=== PATIENT | female | born 1990 | race Caucasian/White ===

== ENCOUNTER → 2018-07-30 | Outpatient (CLI) | payer MEDICAID | LOC: LABWHC1 13:50 | PROVIDERS: ATTEND Obstetrics & Gynecology Obstetrics | DX: N83.209 Unspecified ovarian cyst, unspecified side (principal) | CPT/HCPCS: 36415 ==

== ENCOUNTER → 2018-09-13 | Outpatient (CLI) | payer MEDICAID ==
[2018-09-13 09:19] LABS: Basophils % (A) 0 %; Eosinophils # (A) 0.3 k/uL (0-0.7); Eosinophils % (A) 4 %; HCT 40.4 % (34.0-46.0); HGB 13.3 gm/dL (11.4-16.0); Lymphocytes # (A) 2.6 k/uL (1.0-4.8); Lymphocytes % (A) 29 %; MCH 28.5 pg (25.0-35.0); MCHC 32.8 g/dL (31.0-37.0); MCV 86.9 fL (80.0-100.0); Mean Platelet Volume 7.6; Monocytes # (A) 0.6 k/uL (0-1.0); Monocytes % (A) 7 %; Neutrophils # (A) 5.2 k/uL (1.3-7.7); Neutrophils % (A) 58 %; Platelet Count 188 k/uL (150-450); RBC 4.65 m/uL (3.80-5.40); RDW 13.1 % (11.5-15.5); WBC 8.9 k/uL (3.8-10.6)
== END | disposition home or self-care (01) ==
LOC: LABPAT 08:25
PROVIDERS: ATTEND Obstetrics & Gynecology Obstetrics
DX: Z01.812 Encounter for preprocedural laboratory examination (principal); N94.9 Unspecified condition associated with female genital organs and menstrual cycle; N92.6 Irregular menstruation, unspecified
CPT/HCPCS: 36415; 85025

== ENCOUNTER 2018-09-17 08:31 | Day surgery (SDC) | payer MEDICAID ==
[2018-09-12 15:28] VITALS: BMI 32.8
--- NOTE | 2018-09-16 14:12 | HP ---
HISTORY AND PHYSICAL DATE OF SURGERY: 09/17/2018 HISTORY OF PRESENT ILLNESS: This is a very pleasant 28-year-old female, 1, para 0-0-1-0 that presented for her preoperative visit for ovarian mass. Patient had a noted 4 cm solid-appearing ovarian mass, underwent ova 1 testing, which was low risk. Patient is desirous of in the near future. PAST MEDICAL HISTORY: Unremarkable. PAST SURGICAL HISTORY: She has had her adenoids and tonsils removed along with her wisdom teeth. MEDICATIONS: She is on aspirin, folic acid, and a vitamin. ALLERGIES: PREDNISONE. FAMILY MEDICAL HISTORY: Noncontributory. ICD 9 CODER HISTORY: She is a 1, para 0-0-1-0 with history of a missed AB in May of 2018. The patient states her menstrual cycles are regular with a moderate flow lasting 4-5 days. SOCIAL HISTORY: She is a current smoker of quarter pack a day. She is employed as a nurse. She denies illicit drug use. REVIEW OF SYSTEMS: She denies body aches, night sweats or fevers. She denies nausea, vomiting, diarrhea, constipation. She denies urgency, frequency, dysuria, incontinence, or changes in vaginal discharge. PHYSICAL EXAM: Vital Signs are noted to be normal. In general, this is a well-nourished, well- developed, alert female in no acute distress. Her breathing is noted to be nonlabored. Her heart has a regular rate and rhythm. Her genitourinary exam is normal in nature. External vaginal anatomy is noted to be normal without lesions. Her cervix is normal, healthy, no lesions are present. Her uterus is nontender to palpation. No masses are noted. It is normal in size and mobility is normal. There are no adnexal masses are present. Her mental status is noted to be grossly oriented to person, place, and time. Her mood is normal with a normal affect. ASSESSMENT: Ovarian mass with negative ova 1 testing. PLAN: We have discussed with the patient the options of operative laparoscopy with right salpingo-oophorectomy in fertility sparing of her left ovary. Patient states understanding and the need for surgery given the size of the mass on the ovary despite negative genetic testing. Patient is counseled on the surgery itself. All questions are answered. Risks are reviewed including, but not limited to infection, bleeding, damage to bladder, bowel, ureteric or other pelvic structures. The need for possible exploratory laparotomy given size of the ovarian mass or complexity of the surgery were discussed. The patient states understanding of this as well. The patient wishes to proceed with this procedure. MMODL / IJN: [id number] /
[~2018-09-17 08:31] MED LIST: HYDROmorphone 0.5 MG/0.5 ML SYRINGE IVP PRN; LACTATED RINGERS 1,000 ML IV SCH; MIDAZOLAM 2 MG/2 ML VIAL IV PRN; Pre Op ABX Message 1 EACH MISC MISCELLANE ONE; SCOPOLAMINE 1.5MG/72HR PATCH TRANSDERM ONE
[2018-09-17] MEDS: ONDANSETRON 4 MG/2 ML VIAL IVP ONE ×2 (08:55→11:11)
[2018-09-17] MEDS ORDERED: HYDROmorphone (PF) 1 MG/ML ONE (09:44)
[2018-09-17] MEDS ORDERED: NEOSTIGMINE 1 MG/ML 10 ML VIAL ONE (09:44)
[2018-09-17] MEDS ORDERED: KETOROLAC 30 MG/ML 1 ML VIAL ONE (09:44)
[2018-09-17] MEDS ORDERED: ROCURONIUM BROMIDE 10 MG/ML 10 ML VIAL IV ONE (09:44)
[2018-09-17] MEDS ORDERED: PROPOFOL 10 MG/ML 20 ML VIAL IV ONE (09:44)
[2018-09-17] MEDS ORDERED: fentaNYL (PF) 50 MCG/ML 2 ML AMP ONE (09:44)
[2018-09-17] MEDS ORDERED: GLYCOPYRROLATE 0.2 MG/ML 2 ML VIAL ONE (09:44)
[2018-09-17] MEDS ORDERED: LIDOCAINE 1% INJ 10MG/ML (20 ML MDV) ONE (09:44)
[2018-09-17] MEDS ORDERED: MIDAZOLAM 2 MG/2 ML VIAL ONE (09:44)
[2018-09-17] MEDS ORDERED: BUPIVACAINE (PF) 0.25% 30 ML VIAL SQ ONE ×2 (10:05)
[2018-09-17 11:09] VITALS: TEMP 97.4
[2018-09-17 11:19] VITALS: RESP 16
--- NOTE | 2018-09-17 11:20 | P.OP ---
Date of Procedure: 09/17/18 Preoperative Diagnosis: Right ovarian mass, 4 cm Postoperative Diagnosis: Same plus suspected endometriosis Procedure(s) Performed: Operative laparoscopy with right salpingo-oophorectomy Anesthesia: GETA Surgeon: Georgina Ledezma Estimated Blood Loss (ml): 10 Urine output (ml): 100 Pathology: other (Right ovary and fallopian tube) Condition: stable Disposition: PACU Indications for Procedure: Right ovarian solid appearing mass, negative ova-1 testing Operative Findings: Enlarged right ovary with hemorrhagic features, normal left ovary normal left fallopian tube uterus normal in size freely mobile. There was a filmy adhesion noted in the right upper abdomen which makes my suspicion for endometriosis greater. Description of Procedure: Patient was seen in the preoperative area and informed consent was obtained. Patient was counseled on the risks of surgery Clooney but not limited to infection, bleeding, damage to bladder, bowel, ureteric or other pelvic structures. Patient stated understanding and wished to proceed. Patient was taken to the operating suite where general anesthesia was obtained without difficulty. She was then prepped and draped in normal sterile fashion in the dorsal lithotomy position. A red rubber catheter was then placed into the bladder as a means to drain the bladder during the procedure. A weighted speculum was placed in the posterior vaginal vault the anterior lip of the cervix was visualized and grasped with single-tooth tenaculum. An acorn uterine manipulator was advanced into the cervix as a means to miniplate uterus throughout the procedure. Attention was then turned the patient's abdomen where in the umbilical fold a 5 mm skin incision is made. Through this incision the Veress needle is placed. Once very stenosed deemed to be in the appropriate position with a drop of CO2 pressure CO2 insufflation was allowed to occur. The incision was elongated and neck 10 mm trocar and sleeve with a practice managers scope in placed was placed through the skin incision and toward the pneumoperitoneum. The above-noted findings were visualized. At this point a additional port site was placed in the right lateral sidewall this is placed under direct visual ization and was a 5 mm port. An additional port site was placed in the left lateral sidewall this is a 12 mm ports and placed under direct visualization. The right ovary was noted to be loosely attached to the pelvic sidewall these were all filmy in nature the bowel was far from the operating field. Once the ovary was visualized the interval pelvic ligament was grasped with the LigaSure coagulated and transected hemostasis was appreciated. This continued behind the ovary and through the uterine ovarian ligament. Hemostasis was appreciated throughout. The ovary was then placed in an Endo Catch bag and delivered through the left lateral port site. The pelvis then copiously irrigated and hemostasis was appreciated. FloSeal was placed on the left pelvic sidewall where the pelvic mass was noted. At this time all ports removed without difficulty. The 12 mm operative port fascial incision was closed with a UR 6-0 Vicryl. The skin incisions were closed with 4-0 Vicryl in a subcuticular fashion. The red rubber catheter, and acorn uterine manipulator were removed without difficulty and the single tooth tenaculum was removed, and hemostasis was appreciated. ALL COUNTS CORRECT X 2 Patient tolerated procedure well was taken to the recovery room awake in stable condition.
[2018-09-17 12:30] VITALS: BP 119/80; PULSE 74
== END 2018-09-17 13:04 | disposition home or self-care (01) ==
LOC: OR 08:31
PROVIDERS: ATTEND Obstetrics & Gynecology Obstetrics
DX: N83.201 Unspecified ovarian cyst, right side (principal); N83.8 Other noninflammatory disorders of ovary, fallopian tube and broad ligament; G43.909 Migraine, unspecified, not intractable, without status migrainosus; K21.9 Gastro-esophageal reflux disease without esophagitis; Z87.891 Personal history of nicotine dependence; Z79.82 Long term (current) use of aspirin; Z79.899 Other long term (current) drug therapy; Z88.8 Allergy status to other drugs, medicaments and biological substances; Z91.09 Other allergy status, other than to drugs and biological substances
CPT/HCPCS: 58661; 81025; 88305; C1762; J2250; J2710; J2405; J2001; J3010; J1885; J1170 ×2; J2704

== ENCOUNTER 2020-01-19 06:00 | Inpatient (IN) | payer MEDICAID ==
[2020-01-19] MEDS ORDERED: LIDOCAINE 0.5% (PF) 5 MG/ML (50 ML SDV) SQ PRN (06:18)
[2020-01-19] MEDS ORDERED: CARBOPROST TROMETHAMINE 250 MCG/ML 1 ML AMP IM PRN (06:18)
[2020-01-19] MEDS ORDERED: METHYLERGONOVINE 0.2 MG/ML 1 ML AMP IM PRN (06:18)
[2020-01-19] MEDS ORDERED: TERBUTALINE 1 MG/ML VIAL SQ PRN (06:18)
[2020-01-19] MEDS ORDERED: OXYTOCIN 10 UNIT/ML 1 ML VIAL IM PRN (06:18)
[2020-01-19] MEDS ORDERED: OXYTOCIN 30 UNITS/500 ML NS 30 UNIT in SALINE 1 500ML.BAG IV SCH (06:30)
[2020-01-19] MEDS: LACTATED RINGERS 1,000 ML IV SCH ×3 (06:33→18:43)
[2020-01-19 07:48] LABS: Basophils % (A) 0 %; Eosinophils # (A) 0.2 k/uL (0-0.7); Eosinophils % (A) 1 %; HCT 35.6 % (34.0-46.0); HGB 11.7 gm/dL (11.4-16.0); Lymphocytes # (A) 2.3 k/uL (1.0-4.8); Lymphocytes % (A) 18 %; MCH 27.4 pg (25.0-35.0); MCHC 32.9 g/dL (31.0-37.0); MCV 83.3 fL (80.0-100.0); Mean Platelet Volume 9.1; Monocytes # (A) 0.7 k/uL (0-1.0); Monocytes % (A) 6 %; Neutrophils # (A) 9.1 k/uL (1.3-7.7); Neutrophils % (A) 73 %; Platelet Count 193 k/uL (150-450); RBC 4.27 m/uL (3.80-5.40); RDW 13.7 % (11.5-15.5); WBC 12.4 k/uL (3.8-10.6)
--- NOTE | 2020-01-19 09:31 | P.HPOB ---
History of Present Illness H&P Date: 01/19/20 Chief Complaint: IUP at 39 and 3/sevenths weeks This is a 29-year-old at 39-3/7 weeks with an estimated due date of 01/22. Patient presents for induction of labor. Patient has been receiving routine clinical care which has been essentially uncomplicated. Patient does have a history of MTHFr. This morning patient notes good movement, denies loss of fluid or vaginal bleeding and she does note an occasional contraction. On bloodwork patient is a blood type of B+, rubella immune, just surface antigen negative, RPR nonreactive, GBS negative. Review of Systems Constitutional: Denies chills, Denies fatigue, Denies fever Ears, nose, mouth and throat: Denies headache Cardiovascular: Reports leg edema Respiratory: Denies dyspnea Gastrointestinal: Denies constipation, Denies diarrhea, Denies nausea, Denies vomiting Genitourinary: Reports Past Medical History Past Medical History: No Reported History Additional Past Medical History / Comment(s): migraines, occ palpitations, occ heartburn, History of Any Multi-Drug Resistant Organisms: None Reported Past Surgical History: Adenoidectomy, Tonsillectomy Additional Past Surgical History / Comment(s): oral surgery, right ovarian in 2019 Past Anesthesia/Blood Transfusion Reactions: No Reported Reaction Past Psychological History: No Psychological Hx Reported Smoking Status: Never smoker Past Alcohol Use History: Occasional Additional Past Alcohol Use History / Comment(s): quit smoking over 12 yrs ago, smoked for < 1 yr Past Drug Use History: None Reported - Past Family History Father Family Medical History: Cancer Additional Family Medical History / Comment(s): oral Medications and Allergies Home Medications Medication Instructions Recorded Confirmed Type Aspirin [Adult Low Dose Aspirin EC] 81 mg PO DAILY 09/12/18 01/19/20 History Folic Acid (Dose Unknown) 1 tab PO DAILY 09/12/18 01/19/20 History Pnv No.95/Ferrous Fum/Folic AC 1 each PO DAILY 09/12/18 01/19/20 History [ Multivitamin Tablet] Omeprazole [PriLOSEC] 20 mg PO AC-BID 01/19/20 01/19/20 History Allergies Allergy/AdvReac Type Severity Reaction Status Date / Time prednisone Allergy Severe made hives Verified 01/19/20 06:17 worse-burning and itching airbrush makeup Allergy Anaphylaxis Uncoded 01/19/20 06:17 preservative in injections Allergy Nausea & Uncoded 01/19/20 06:17 Vomiting & Diarrhea Exam Osteopathic Statement: *. No significant issues noted on an osteopathic structural exam other than those noted in the History and Physical/Consult. 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 Results Result Diagrams: 01/19/20 06:30 Abnormal Lab Results - Last 24 Hours (Table) 01/19/20 Range/Units 06:30 WBC 12.4 H (3.8-10.6) k/uL Neutrophils # 9.1 H (1.3-7.7) k/uL Assessment and Plan (1) Term Current Visit: Yes Status: Acute Code(s): Z34.90 - ENCNTR FOR SUPRVSN OF NORMAL , UNSP, UNSP TRIMESTER SNOMED Code(s): 34584942 Plan: Patient is admitted to labor and delivery for planned induction of labor. Pitocin is started per hospital protocol. Patient is counseled on options for analgesia during labor including Stadol and epidural. Patient will decide when she becomes uncomfortable.
[2020-01-19] MEDS ORDERED: ROPIVACAINE 5MG/ML 20ML VIAL ONE (18:38)
[2020-01-19] MEDS ORDERED: fentaNYL (PF) 50 MCG/ML 5 ML AMP ONE (18:38)
[2020-01-19] MEDS ORDERED: SODIUM CHLORIDE 0.9% 100 ML BAG ONE (18:38)
[2020-01-19] MEDS ORDERED: CITRIC ACID-SODIUM CITRATE 15 ML CUP PO ONE (20:54)
[2020-01-19] MEDS ORDERED: fentaNYL (PF) 50 MCG/ML 2 ML AMP ONE (21:11)
[2020-01-19] MEDS ORDERED: OXYTOCIN 10 UNIT/ML 1 ML VIAL ONE (21:11)
[2020-01-19] MEDS ORDERED: LIDOCAINE 2% (PF) 20 MG/ML 2 ML VIAL ONE (21:11)
[2020-01-19] MEDS ORDERED: MORPHINE SULFATE (PF) 0.3 MG/0.3 ML SYR ONE (21:11)
[2020-01-19] MEDS ORDERED: METOCLOPRAMIDE 5 MG/ML 2 ML VIAL IVP PRN (22:02)
[2020-01-19] MEDS ORDERED: diphenhydrAMINE 25 MG CAP PO PRN (22:02)
[2020-01-19] MEDS ORDERED: HYDROcodone/APAP 5-325MG 1 EACH TAB PO PRN (22:02)
[2020-01-19] MEDS ORDERED: diphenhydrAMINE 50 MG CAP PO PRN (22:02)
[2020-01-19] MEDS ORDERED: ONDANSETRON 4 MG/2 ML VIAL IVP PRN (22:02)
[2020-01-19] MEDS ORDERED: NALOXONE 0.4 MG/ML 1 ML VIAL IV PRN (22:02)
[2020-01-19] MEDS ORDERED: diphenhydrAMINE 50 MG/ML 1 ML VIAL IVP PRN ×2 (22:02)
[2020-01-19] MEDS ORDERED: ACETAMINOPHEN IV (For NPO) 1,000 MG in EMPTY BAG 1 BAG IVPB ONE (22:02)
[2020-01-19] MEDS ORDERED: ZOLPIDEM 5 MG TAB PO PRN (22:02)
[2020-01-19] MEDS ORDERED: SIMETHICONE 80 MG CHEWABLE PO PRN (22:02)
[2020-01-19] MEDS ORDERED: IBUPROFEN IV 800 MG in SODIUM CHLORIDE 0.9% 250 ML IV ONE (22:04)
--- NOTE | 2020-01-19 22:09 | P.OP ---
Date of Procedure: 01/19/20 Preoperative Diagnosis: IUP at 39 and 3/sevenths weeks, arrest of descent and dilation Postoperative Diagnosis: Same Procedure(s) Performed: Primary low transverse section Anesthesia: epidural Surgeon: Georgina Ledezma Lens Silverer #1: Brigitte Bernabe Estimated Blood Loss (ml): 464 IV fluids (ml): 1,800 Urine output (ml): 200 Pathology: none sent Condition: stable Disposition: observation Indications for Procedure: This 29-year-old G2 2 para 0010 at 39-3/7 weeks presented this morning for elective induction of labor. Patient had been receiving routine care which has been essentially uncomplicated. Patient does have a history of NTD HFR. Patient was admitted Pitocin induction of labor was begun. Patient made slow progress throughout the day eventually requesting an epidural when she was 78 cm for a couple hours. After another few hours had passed patient had a made no further change, and arrest of descent and dilation was diagnosed. Patient was counseled on primary secondary to arrest of first stage of labor. Patient agreed and was taken back to the operating suite. Operative Findings: Normal uterus and ovaries were appreciated right fallopian tube was absent from prior ectopic . Viable male delivered at 2133, weight of 7 lbs. 11 oz. and Apgars of 9 and 9 at one and 5 minutes respectively. Description of Procedure: The patient was prepped and draped in the usual fashion after epidural anesthesia was found to be adequate. A Pfannenstiel incision was made and extended of the abdominal cavity without difficulty. The bladder peritoneum was elevated and incised and reflected distally. A 2 cm incision was made in the transverse plane of the lower uterine segment to enter the uterus at which time clear fluid was noted. The incision was extended laterally. The head was encountered within the field and delivered up and through the incision where the nose and mouth were thoroughly suctioned. Remainder of the was delivered onto the surgical field where the cord was doubly clamped, cut, and the was passed for resuscitative measures with weight and Apgars as noted above. The placenta was delivered manually, intact, and was grossly normal with a grossly normal three-vessel cord. The uterus was exteriorized and the interior cavity of the uterus swept of any remaining placental and membranous fragments with a laparotomy sponge. The margins of the incision were grasped with allis clamps and the incision closed in 2 layers. First layer was a running locking layer of 0 Vicryl from margin to margin followed by a second layer of imbricating 0 chromic catgut from margin to margin. Any small points of bleeding were then made hemostatic with the Bovie. Once hemostasis was achieved, the posterior cul-de-sac was suctioned with a guard and the uterine and ovarian findings are as noted above. The uterus was replaced within the abdominal cavity and the gutters swept of any remaining blood fluid or clot. The incision was again reexamined and hemostasis was noted to be excellent. Any small point of bleeding were made hemostatic with the Bovie. Once hemostasis was achieved the parietal peritoneum was loosely reapproximated. The layer of muscles were examined and made hemostatic with the Bovie. Attention was then turned to the fascia which was closed with 2 running stitches of 0 Vicryl proceeding from the lateral margins to the midpoint. The subcutaneous tissues were irrigated, made hemostatic with the Bovie, and reapproximated with a running stitch of 30 Vicryl. The skin was reapproximated with 4-0 Vicryl. Estimated blood loss for the case was approximately 464 mL. All sponge instrument and needle counts are correct. There were no complications. The patient tolerated the procedure well and proceeded to the recovery room in stable condition. Both mother and are resting comfortably in recovery.
[2020-01-19] MEDS ORDERED: OXYTOCIN 20 UNITS/1000 ML NS 1,000 ML IV SCH (22:15)
[2020-01-19] MEDS ORDERED: LACTATED RINGERS 1,000 ML IV SCH (22:15)
[2020-01-20] MEDS: LACTATED RINGERS 1,000 ML IV SCH (05:46)
[2020-01-20 07:45] LABS: Basophils % (A) 0 %; Eosinophils # (A) 0.3 k/uL (0-0.7); Eosinophils % (A) 2 %; HCT 29.2 % (34.0-46.0); Lymphocytes # (A) 1.6 k/uL (1.0-4.8); Lymphocytes % (A) 12 %; MCH 27.8 pg (25.0-35.0); MCHC 33.6 g/dL (31.0-37.0); MCV 82.7 fL (80.0-100.0); Mean Platelet Volume 8.6; Monocytes # (A) 0.8 k/uL (0-1.0); Monocytes % (A) 6 %; Neutrophils # (A) 10.8 k/uL (1.3-7.7); Neutrophils % (A) 80 %; Platelet Count 133 k/uL (150-450); RBC 3.53 m/uL (3.80-5.40); RDW 13.6 % (11.5-15.5); WBC 13.6 k/uL (3.8-10.6)
[2020-01-20] MEDS: SENNOSIDES-DOCUSATE SODIUM 1 EACH TAB PO SCH ×2 (07:49→19:45)
[2020-01-20 07:59] LABS: HGB 9.8 gm/dL (11.4-16.0)
--- NOTE | 2020-01-20 08:14 | P.PN ---
Progress Note - Text Progress Note Date: 01/20/20 (700) S/p c/s with duramorph doing well. W/o complaint. VAS 0/10. No N/V/P. Afebrile. Spinal site intact without induration. NAD Reg Rate Good Chest Excursion Non Distended A: Sp C/s with duramorph through epidural P: Answered all questions.
[2020-01-20] MEDS: IBUPROFEN 600 MG TAB PO PRN ×2 (10:43→17:18)
--- NOTE | 2020-01-20 12:50 | P.PNOBGPC ---
Subjective - Subjective Principal diagnosis: POD 1 LTCS srrest of descent and dilation Interval history: Patient did well overnight. She is ambulating and voiding without difficulty. She is tolerating a regular diet without nausea or vomiting. States her lochia is minimal. She is breast-feeding with some difficulty, she states her pain is well-controlled. Patient reports: Reports appetite normal, Reports voiding normally, Reports pain well controlled, Reports ambulating normally [place]: doing well, nursing well Objective - Vital Signs Latest vital signs: Vital Signs Temp Pulse Resp BP Pulse Ox 01/20/20 07:45 97.9 F 79 16 132/78 99 01/20/20 04:00 98 F 77 16 132/73 98 01/20/20 00:07 98 F 83 16 127/76 97 01/19/20 23:37 68 16 126/67 97 01/19/20 23:07 81 16 130/62 100 01/19/20 22:52 95 16 151/85 100 01/19/20 22:37 93 16 126/66 98 01/19/20 22:22 100 16 135/61 97 01/19/20 22:07 97.3 F L 114 H 18 155/59 97 Intake and Output 01/19/20 01/20/20 01/20/20 22:59 06:59 14:59 Output Total 150 550 300 Balance -150 -550 -300 Output: Urine 150 550 300 Other: Voiding Method Indwelling Catheter Indwelling Catheter # Voids 1 - Exam Extremities: Present: edema Abdomen: Present: normal appearance, soft Incision: Present: normal, dry, intact Uterus: Present: normal, firm - Labs Labs: Abnormal Lab Results - Last 24 Hours (Table) 01/20/20 Range/Units 07:34 WBC 13.6 H (3.8-10.6) k/uL RBC 3.53 L (3.80-5.40) m/uL Hgb 9.8 L D (11.4-16.0) gm/dL Hct 29.2 L (34.0-46.0) % Plt Count 133 L (150-450) k/uL Neutrophils # 10.8 H (1.3-7.7) k/uL Assessment and Plan (1) Term Current Visit: Yes Status: Acute Code(s): Z34.90 - ENCNTR FOR SUPRVSN OF NORMAL , UNSP, UNSP TRIMESTER SNOMED Code(s): 79748604 (2) S/P section Current Visit: Yes Status: Acute Code(s): Z98.891 - HISTORY OF UTERINE SCAR FROM PREVIOUS SURGERY SNOMED Code(s): 675102017 (3) Arrest of descent, delivered, current hospitalization Current Visit: Yes Status: Acute Code(s): O62.1 - SECONDARY UTERINE INERTIA SNOMED Code(s): 51862905 (4) Arrest of dilation, delivered, current hospitalization Current Visit: Yes Status: Acute Code(s): O62.1 - SECONDARY UTERINE INERTIA SNOMED Code(s): 75092396 Plan: Patient is doing well postoperatively. We will plan to continue routine postoperative care and anticipate discharge home tomorrow.
[2020-01-20] MEDS: ACETAMINOPHEN TAB 325 MG TAB PO PRN ×2 (14:34→19:45)
[2020-01-21] MEDS: SENNOSIDES-DOCUSATE SODIUM 1 EACH TAB PO SCH (07:50)
[2020-01-21] MEDS: IBUPROFEN 600 MG TAB PO PRN (07:53)
[2020-01-21 08:16] VITALS: BP 135/62; PULSE 74; RESP 17; TEMP 97.9
--- NOTE | 2020-01-21 08:41 | P.DS ---
Providers Date of admission: 01/19/20 06:00 Expected date of discharge: 01/21/20 Attending physician: Georgina Ledezma Primary care physician: Regina Perdomo - Discharge Diagnosis(es) (1) Term Current Visit: Yes Status: Acute (2) S/P section Current Visit: Yes Status: Acute (3) Arrest of descent, delivered, current hospitalization Current Visit: Yes Status: Acute (4) Arrest of dilation, delivered, current hospitalization Current Visit: Yes Status: Acute Hospital Course: this is a 29-year-old at 39-3/7 weeks that presented to labor and delivery on 01/18 for elective induction of labor. Patient has been receiving routine care which has been essentially uncomplicated. Patient does have a known history FM T HFR. Patient was admitted to labor and delivery and Pitocin induction of labor was begun. Patient progressed through labor progressing to 78 cm. After a few hours of no change patient was counseled on epidural for comfort. Epidural was placed without difficulty by the anesthesia department. After several more hours no cervical change was noted along with no further descent of the head. Patient was counseled on primary for arrest of descent and dilation. Patient stated understanding as it has been 6 hours since her last cervical change. Patient was taken back to the operating suite and was performed. For further details on the please see the operative report, liveborn male delivered at 2133, weight of 7 lbs. 11 oz. and Apgars of 9 and 9 at one and 5 minutes respectively. Patient's postoperative course has been uneventful. On this postoperative day #2 she is ambulating and voiding without difficulty. She is tolerating a regular diet without nausea or vomiting. She states her pain is well-controlled. She is breast-feeding. Patient Condition at Discharge: Good Plan - Discharge Summary New Discharge Prescriptions: No Action Aspirin [Adult Low Dose Aspirin EC] 81 mg PO DAILY Pnv No.95/Ferrous Fum/Folic AC [ Multivitamin Tablet] 1 each PO DAILY Folic Acid (Dose Unknown) 1 tab PO DAILY Omeprazole [PriLOSEC] 20 mg PO AC-BID Discharge Medication List Aspirin [Adult Low Dose Aspirin EC] 81 mg PO DAILY 09/12/18 [History] Folic Acid (Dose Unknown) 1 tab PO DAILY 09/12/18 [History] Pnv No.95/Ferrous Fum/Folic AC [ Multivitamin Tablet] 1 each PO DAILY 09/12/18 [History] Omeprazole [PriLOSEC] 20 mg PO AC-BID 01/19/20 [History] Follow up Appointment(s)/Referral(s): Georgina Ledezma DO [Doctor of Osteopathic Medicine] - 1 Week Patient Instructions/Handouts: (DC), (GEN) Discharge Disposition: HOME SELF-CARE
== END 2020-01-21 11:15 | disposition home or self-care (01) | DRG 787 ==
LOC: 4FBP 06:00
PROVIDERS: ADMIT Obstetrics & Gynecology Obstetrics; ATTEND Obstetrics & Gynecology Obstetrics
PROC: 3E033VJ Introduction of Other Hormone into Peripheral Vein, Percutaneous Approach (ICD-10-PCS; 2020-01-19)
PROC: 10D00Z1 Extraction of Products of Conception, Low, Open Approach (ICD-10-PCS; principal; 2020-01-19 21:21)
DX: O99.284 Endocrine, nutritional and metabolic diseases complicating childbirth (principal); E72.12 Methylenetetrahydrofolate reductase deficiency; O99.62 Diseases of the digestive system complicating childbirth; O62.1 Secondary uterine inertia; K21.9 Gastro-esophageal reflux disease without esophagitis; G43.909 Migraine, unspecified, not intractable, without status migrainosus; Z79.82 Long term (current) use of aspirin; Z79.899 Other long term (current) drug therapy; Z87.59 Personal history of other complications of pregnancy, childbirth and the puerperium; Z37.0 Single live birth; Z3A.39 39 weeks gestation of pregnancy; Z90.79 Acquired absence of other genital organ(s); Z88.8 Allergy status to other drugs, medicaments and biological substances; Z91.048 Other nonmedicinal substance allergy status; Z80.8 Family history of malignant neoplasm of other organs or systems
CPT/HCPCS: 85025; 86850; 86900; 86901

== ENCOUNTER → 2021-01-21 | Outpatient (CLI) | payer OTHER, MEDICAID | END | disposition home or self-care (01) | LOC: LABWHC1 05:41 | PROVIDERS: ATTEND Emergency Medicine | DX: U07.1 COVID-19 (principal) | CPT/HCPCS: 87635 ==

== ENCOUNTER 2021-12-16 05:57 | Inpatient (IN) | payer MEDICAID ==
[2021-12-16] MEDS ORDERED: CITRIC ACID-SODIUM CITRATE 15 ML CUP PO ONE (06:16)
[2021-12-16] MEDS ORDERED: LACTATED RINGERS 1,000 ML IV ONE (06:16)
[2021-12-16 06:58] LABS: Basophils % (A) 0 %; Eosinophils # (A) 0.2 k/uL (0-0.7); Eosinophils % (A) 2 %; HCT 34.4 % (34.0-46.0); HGB 12.1 gm/dL (11.4-16.0); Lymphocytes # (A) 2.5 k/uL (1.0-4.8); Lymphocytes % (A) 17 %; MCH 30.8 pg (25.0-35.0); MCHC 35.2 g/dL (31.0-37.0); MCV 87.5 fL (80.0-100.0); Mean Platelet Volume 9.8; Monocytes # (A) 0.8 k/uL (0-1.0); Monocytes % (A) 6 %; Neutrophils # (A) 10.5 k/uL (1.3-7.7); Neutrophils % (A) 74 %; Platelet Count 155 k/uL (150-450); RBC 3.94 m/uL (3.80-5.40); RDW 13.1 % (11.5-15.5); WBC 14.2 k/uL (3.8-10.6)
[2021-12-16] MEDS: LACTATED RINGERS 1,000 ML IV SCH ×4 (07:34→22:32)
[2021-12-16] MEDS ORDERED: PHENYLEPHRINE-0.9% NACL SYG 1,000 MCG/10 ML SYRINGE ONE (08:00)
[2021-12-16] MEDS ORDERED: MORPHINE SULFATE (PF) 0.3 MG/0.3 ML SYR ONE (08:00)
[2021-12-16] MEDS ORDERED: OXYTOCIN 30 UNITS/500 ML NS BAG IV ONE (08:00)
[2021-12-16] MEDS ORDERED: NALBUPHINE 10 MG/ML (1 ML AMP) ONE (08:00)
[2021-12-16] MEDS ORDERED: ONDANSETRON 4 MG/2 ML VIAL ONE (08:00)
[2021-12-16] MEDS ORDERED: ePHEDrine 50 MG/ML 1 ML VIAL ONE (08:00)
[2021-12-16] MEDS ORDERED: MORPHINE SULFATE 2 MG/ML SYRINGE IVP PRN (09:05)
[2021-12-16] MEDS ORDERED: diphenhydrAMINE 50 MG/ML 1 ML VIAL IVP PRN ×3 (09:05→10:30)
[2021-12-16] MEDS ORDERED: NALOXONE 0.4 MG/ML 1 ML VIAL IV PRN ×2 (09:05→10:30)
[2021-12-16] MEDS ORDERED: ONDANSETRON 4 MG/2 ML VIAL IVP PRN ×2 (09:05→10:30)
[2021-12-16] MEDS ORDERED: ZOLPIDEM 5 MG TAB PO PRN (10:30)
[2021-12-16] MEDS ORDERED: diphenhydrAMINE 50 MG CAP PO PRN (10:30)
[2021-12-16] MEDS ORDERED: diphenhydrAMINE 25 MG CAP PO PRN (10:30)
[2021-12-16] MEDS ORDERED: METOCLOPRAMIDE 5 MG/ML 2 ML VIAL IVP PRN (10:30)
[2021-12-16] MEDS ORDERED: OXYTOCIN 30 UNITS/500 ML NS 30 UNIT in SALINE 1 500ML.BAG IV SCH (10:30)
--- NOTE | 2021-12-16 13:09 | P.OP ---
Date of Procedure: 12/16/21 Preoperative Diagnosis: IUP at 39-0/7 weeks, history of 1, desires repeat Postoperative Diagnosis: Same Procedure(s) Performed: Repeat section, tubal ligation with Filshie clips Anesthesia: spinal Surgeon: Georgina Ledezma Estimated Blood Loss (ml): 450 IV fluids (ml): 1,000 Urine output (ml): 500 (clear yellow) Pathology: none sent Condition: stable Disposition: observation Indications for Procedure: 31-year-old at 39 0/7 weeks presents for repeat section. Patient has a history of a primary for arrest of descent dilation and desires repeat. Operative Findings: Normal pelvic anatomy is appreciated, history of right salpingo-oophorectomy, left ovary and tube are normal in nature. Viable male infant delivered at 829, weight of 8 lbs. 9 oz., Apgars of 9 and 9 at one and 5 minutes respectively. Description of Procedure: Patient is seen back to the operating suite where spinal anesthesia was found be adequate. She is prepped and draped in normal sterile fashion in the dorsal supine position. A Cesar catheter was placed under sterile technique prior to this. A Pfannenstiel skin incision is made with the scalpel and carried through to the underlying layer of fascia. The fascia was incised in the midline and extended laterally. The superior aspect of the fascial incision was then grasped francisco clamps, elevated and underlying rectus muscles dissected off sharply. The inferior aspect of the fascial incision was then grasped francisco clamps, elevated and underlying rectus muscle was dissected off sharply. The peritoneum was identified and entered. The bladder blade was inserted into the pelvis the vesicouterine peritoneum was identified and the bladder flap was created using sharp and blunt dissection. The scalpel was used to make a hysterotomy incision amniotomy was performed and clear fluid was obtained. The infant was noted in a vertex presentation and delivered in the usual fashion. The infant was then handed off to awaiting RN, spontaneous cry was noted at . The umbilical cord was doubly clamped and cut. The placenta was then delivered manually and the uterus was exteriorized and cleared of all clots and debris. Uterine incision was closed with 0 Vicryl in a running locked fashion hemostasis was appreciated. The left fallopian tube was visualized and a Filshie clip applicator was used to crush the tube with the Filshie clip. The right ovary and tube were removed surgically prior to surgery. The pelvis was then copiously irrigated. The hysterotomy incision was inspected and found to be hemostatic once again. The uterus returned the abdomen. The gutters were cleared of all clots and debris. The peritoneum was then loosely reapproximated. The rectus muscles were inspected and any points of bleeding were made hemostatic with the Bovie. The fascia was then closed 0 Vicryl in a running fashion from one lateral edge the midline and the other lateral edge the midline. The subcu tissue was irrigated found to be hemostatic and closed with 3-0 Vicryl in a running fashion. The skin was then closed with 4-0 Vicryl in a subcuticular fashion. All counts were correct 2 at the end of the section. Patient and tolerated delivery well and are resting comfortably.
--- NOTE | 2021-12-16 13:09 | P.HPOB ---
History of Present Illness H&P Date: 12/16/21 Chief Complaint: IUP at 39-0/7 weeks, history of 1 desires repeat This is a 31-year-old 011 at 39-0/7 weeks, estimated due date of 12/23. Patient presents for repeat section. Patient has a history of a primary and desired repeat. Patient has been receiving routine care with myself which has been essentially uncomplicated. Patient has a known blood type of B+, rubella status immune, hepatitis B surface engine negative, HIV negative, RPR nonreactive, group beta strep cultures are negative. Review of Systems Constitutional: Denies chills, Denies fatigue, Denies fever Ears, nose, mouth and throat: Denies headache Cardiovascular: Reports leg edema Respiratory: Denies dyspnea Gastrointestinal: Denies nausea, Denies vomiting Genitourinary: Reports Past Medical History Past Medical History: No Reported History Additional Past Medical History / Comment(s): migraines, occ palpitations, occ heartburn, History of Any Multi-Drug Resistant Organisms: None Reported Past Surgical History: Adenoidectomy, Section, Tonsillectomy Additional Past Surgical History / Comment(s): oral surgery, right ovarian pre gnancy in 2019 Past Anesthesia/Blood Transfusion Reactions: No Reported Reaction Past Psychological History: No Psychological Hx Reported Smoking Status: Never smoker Past Alcohol Use History: Occasional Additional Past Alcohol Use History / Comment(s): quit smoking over 12 yrs ago, smoked for < 1 yr Past Drug Use History: None Reported - Past Family History Father Family Medical History: Cancer Additional Family Medical History / Comment(s): oral Medications and Allergies Home Medications Medication Instructions Recorded Confirmed Type Aspirin [Adult Low Dose Aspirin EC] 81 mg PO DAILY 09/12/18 12/16/21 History Folic Acid (Dose Unknown) 1 tab PO DAILY 09/12/18 12/16/21 History Pnv No.95/Ferrous Fum/Folic AC 1 each PO DAILY 09/12/18 12/16/21 History [ Multivitamin Tablet] Omeprazole [PriLOSEC] 20 mg PO AC-BID 01/19/20 12/16/21 History Acetaminophen [Tylenol] 325 mg PO ONCE 12/16/21 12/16/21 History Allergies Allergy/AdvReac Type Severity Reaction Status Date / Time prednisone Allergy Severe made hives Verified 01/19/20 06:17 worse-burning and itching airbrush makeup Allergy Anaphylaxis Uncoded 01/19/20 06:17 preservative in injections Allergy Nausea & Uncoded 01/19/20 06:17 Vomiting & Diarrhea Exam Osteopathic Statement: *. No significant issues noted on an osteopathic structural exam other than those noted in the History and Physical/Consult. Vital Signs Temp Pulse Resp BP Pulse Ox 12/16/21 06:13 96.1 F L 100 16 137/79 97 Intake and Output 12/15/21 12/16/21 12/16/21 22:59 06:59 14:59 Other: Weight 114.305 kg Targeted physical exam is performed in this date and field consultant a well-nourished well-developed female in no acute distress, breathing is nonlabored, heart has regular rate and rhythm, abdomen is gravid and appropriate for gestational age, cervical exam is deferred. heart tones noted to be category 1 and she is not samantha. Results Result Diagrams: 12/16/21 06:40 Abnormal Lab Results - Last 24 Hours (Table) 12/16/21 Range/Units 06:40 WBC 14.2 H (3.8-10.6) k/uL Neutrophils # 10.5 H (1.3-7.7) k/uL Assessment and Plan (1) H/O section Current Visit: Yes Status: Acute Code(s): Z98.891 - HISTORY OF UTERINE SCAR FROM PREVIOUS SURGERY SNOMED Code(s): 119170563 (2) Term Current Visit: No Status: Acute Code(s): Z34.90 - ENCNTR FOR SUPRVSN OF NORMAL , UNSP, UNSP TRIMESTER SNOMED Code(s): 80456169 Plan: 31-year-old 011 at 39 0/7 weeks presents for repeat section. C- section was discussed and she declines at this time. Patient is taken back to the operating suite. Risks are reviewed prior to entering the operating suite all questions are answered. Patient states understanding.
[2021-12-16] MEDS ORDERED: ACETAMINOPHEN IV (For NPO) 1,000 MG in EMPTY BAG 1 BAG IVPB PRN (18:00)
[2021-12-16] MEDS ORDERED: IBUPROFEN IV 800 MG in SODIUM CHLORIDE 0.9% 250 ML IV PRN (18:00)
[2021-12-16] MEDS: ACETAMINOPHEN TAB 500 MG TAB PO SCH ×2 (20:27→21:13)
[2021-12-16] MEDS: IBUPROFEN 600 MG TAB PO SCH ×2 (20:28→23:37)
[2021-12-16] MEDS: SENNOSIDES-DOCUSATE SODIUM 1 EACH TAB PO SCH (21:13)
[2021-12-17] MEDS: ACETAMINOPHEN TAB 500 MG TAB PO SCH ×2 (03:00→12:52)
[2021-12-17] MEDS: LACTATED RINGERS 1,000 ML IV SCH (03:01)
[2021-12-17] MEDS: IBUPROFEN 600 MG TAB PO SCH ×2 (05:44→17:09)
[2021-12-17 07:42] LABS: Basophils # (A) 0.1 k/uL (0-0.2); Basophils % (A) 0 %; Eosinophils # (A) 0.2 k/uL (0-0.7); Eosinophils % (A) 1 %; HCT 32.4 % (34.0-46.0); HGB 11.2 gm/dL (11.4-16.0); Lymphocytes # (A) 2.2 k/uL (1.0-4.8); Lymphocytes % (A) 15 %; MCH 30.5 pg (25.0-35.0); MCHC 34.5 g/dL (31.0-37.0); MCV 88.5 fL (80.0-100.0); Monocytes % (A) 7 %; Neutrophils # (A) 11.1 k/uL (1.3-7.7); Neutrophils % (A) 75 %; Platelet Count 162 k/uL (150-450); RBC 3.66 m/uL (3.80-5.40); WBC 14.7 k/uL (3.8-10.6)
--- NOTE | 2021-12-17 08:23 | P.PNOBGPC ---
Subjective - Subjective Principal diagnosis: Postop day 1, repeat with tubal ligation Interval history: Patient is doing well postoperatively. She is ambulating and voiding without difficulty. Tolerating a regular diet without nausea or vomiting. Breast- feeding without difficulty. Lochia is minimal. Patient reports: Reports appetite normal, Reports voiding normally, Reports pain well controlled, Reports ambulating normally : doing well Objective - Vital Signs Latest vital signs: Vital Signs Temp Pulse Resp BP Pulse Ox 12/17/21 04:00 98.2 F 70 16 113/73 98 12/16/21 23:48 98.2 F 69 16 121/75 97 12/16/21 20:00 97.5 F L 81 16 129/85 96 12/16/21 18:00 16 98 12/16/21 16:00 98.3 F 88 16 124/64 98 12/16/21 14:00 16 98 12/16/21 13:17 98.0 F 92 16 122/72 98 12/16/21 11:10 96.5 F L 92 16 112/63 97 12/16/21 10:30 89 16 119/72 98 12/16/21 10:00 99 16 118/64 99 12/16/21 09:57 16 97 12/16/21 09:45 78 16 116/61 96 12/16/21 09:30 96 16 120/61 98 12/16/21 09:18 110 H 16 98 12/16/21 09:15 110 H 16 131/63 12/16/21 09:00 96.4 F L 100 16 122/69 98 Intake and Output 12/16/21 12/17/21 12/17/21 22:59 06:59 14:59 Output Total 2150 450 Balance -2150 -450 Output: Urine 1700 450 Uretheral (Cesar) 1500 Emesis 400 Output, Quantitative 50 Blood Loss Other: # Voids 1 - Exam Extremities: Present: normal, edema Abdomen: Present: normal appearance, soft Incision: Present: normal, dry, intact Uterus: Present: normal, firm - Labs Labs: Abnormal Lab Results - Last 24 Hours (Table) 12/17/21 Range/Units 06:10 WBC 14.7 H (3.8-10.6) k/uL RBC 3.66 L (3.80-5.40) m/uL Hgb 11.2 L (11.4-16.0) gm/dL Hct 32.4 L (34.0-46.0) % Neutrophils # 11.1 H (1.3-7.7) k/uL Assessment and Plan (1) H/O section Current Visit: Yes Status: Acute Code(s): Z98.891 - HISTORY OF UTERINE SCAR FROM PREVIOUS SURGERY SNOMED Code(s): 549139370 (2) Term Current Visit: No Status: Acute Code(s): Z34.90 - ENCNTR FOR SUPRVSN OF NORMAL , UNSP, UNSP TRIMESTER SNOMED Code(s): 69768795 (3) Family planning Current Visit: Yes Status: Acute Code(s): Z30.09 - ENCOUNTER FOR OTH GENERAL CNSL AND ADVICE ON CONTRACEPTION SNOMED Code(s): 096000306 (4) S/P section Current Visit: No Status: Acute Code(s): Z98.891 - HISTORY OF UTERINE SCAR FROM PREVIOUS SURGERY SNOMED Code(s): 137847344 Plan: Patient is doing well postoperatively. Continue routine postoperative care and anticipate discharge home tomorrow.
[2021-12-17 08:28] VITALS: RESP 14
[2021-12-17] MEDS ORDERED: PRENATAL VIT-IRON-FOLIC ACID 1 EACH TABLET PO SCH (09:00)
[2021-12-17] MEDS: SENNOSIDES-DOCUSATE SODIUM 1 EACH TAB PO SCH (09:20)
--- NOTE | 2021-12-17 10:57 | P.PN ---
Progress Note - Text 12/17/21 718am D1-year-old female status post with spinal Duramorph. Patient seen and evaluated for postop pain control, patient has VAS of 4. She had nausea vomiting and pruritus yesterday afternoon. She is doing better with nausea vomiting and pruritus should subside. No anesthesia related issues noted
--- NOTE | 2021-12-17 13:59 | P.DS ---
Providers Date of admission: 12/16/21 05:57 Expected date of discharge: 12/17/21 Attending physician: Georgina Ledezma Primary care physician: Stated None - Discharge Diagnosis(es) (1) H/O section Current Visit: Yes Status: Acute (2) Term Current Visit: No Status: Acute (3) Family planning Current Visit: Yes Status: Acute (4) S/P section Current Visit: No Status: Acute Hospital Course: This is a 31-year-old G3 now P2 012 that presented to labor and delivery at 39- 0/7 weeks on 1028. Patient presented for repeat section. Patient a primary for arrest of descent and dilation and desired repeat. Patient has a history of a right salpingo-oophorectomy but does desire ligation of her left fallopian tube. Patient has been receiving routine care which is essentially uncomplicated. For full details on this patient please see the dictated history and physical. Patient underwent repeat section with Filshie clip application of the left fallopian tube. On the right adnexa a small peritoneal cyst was appreciated this was removed and sent to pathology for analysis in addition. Patient delivered a viable male infant at 829 on 12/16, weight of 8 lbs. 9 oz. For full details on the please see the dictated operative report Patient did request circumcision which was done prior to this discharge. Patient's postoperative course has been uneventful. On this postoperative day #1 she is ambulating and voiding without difficulty. Tolerating a regular diet. She states her pain is well-controlled. She would like discharge home later tonight. Patient Condition at Discharge: Good Plan - Discharge Summary New Discharge Prescriptions: No Action Aspirin [Adult Low Dose Aspirin EC] 81 mg PO DAILY Pnv No.95/Ferrous Fum/Folic AC [ Multivitamin Tablet] 1 each PO DAILY Folic Acid (Dose Unknown) 1 tab PO DAILY Omeprazole [PriLOSEC] 20 mg PO AC-BID Acetaminophen [Tylenol] 325 mg PO ONCE Discharge Medication List Aspirin [Adult Low Dose Aspirin EC] 81 mg PO DAILY 09/12/18 [History] Folic Acid (Dose Unknown) 1 tab PO DAILY 09/12/18 [History] Pnv No.95/Ferrous Fum/Folic AC [ Multivitamin Tablet] 1 each PO DAILY 09/12/18 [History] Omeprazole [PriLOSEC] 20 mg PO AC-BID 01/19/20 [History] Acetaminophen [Tylenol] 325 mg PO ONCE 12/16/21 [History] Follow up Appointment(s)/Referral(s): Georgina Ledezma DO [Doctor of Osteopathic Medicine] - 2 Weeks Patient Instructions/Handouts: (DC), (GEN) Discharge Disposition: HOME SELF-CARE
[2021-12-17 16:44] VITALS: BP 118/74; PULSE 79; TEMP 79.8
== END 2021-12-17 17:36 | disposition home or self-care (01) | DRG 785 ==
LOC: 4FBP 05:57
PROVIDERS: ADMIT Obstetrics & Gynecology Obstetrics; ATTEND Obstetrics & Gynecology Obstetrics
PROC: 0UL70CZ Occlusion of Bilateral Fallopian Tubes with Extraluminal Device, Open Approach (ICD-10-PCS; 2021-12-16)
PROC: 0DBW0ZZ Excision of Peritoneum, Open Approach (ICD-10-PCS; 2021-12-16)
PROC: 10D00Z1 Extraction of Products of Conception, Low, Open Approach (ICD-10-PCS; principal; 2021-12-16 08:00)
DX: O34.211 Maternal care for low transverse scar from previous cesarean delivery (principal); K66.8 Other specified disorders of peritoneum; O99.72 Diseases of the skin and subcutaneous tissue complicating childbirth; L29.9 Pruritus, unspecified; Z30.2 Encounter for sterilization; Z3A.39 39 weeks gestation of pregnancy; Z79.82 Long term (current) use of aspirin; Z88.8 Allergy status to other drugs, medicaments and biological substances; Z91.048 Other nonmedicinal substance allergy status; Z37.0 Single live birth
CPT/HCPCS: 85025; 86850; 86900; 86901

== ENCOUNTER → 2022-12-27 | Outpatient (CLI) | payer MEDICAID ==
[2022-12-27 17:13] LABS: HCT 44.2 % (37.2-46.3); HGB 14.5 g/dL (12.0-15.0); MCH 28.9 pg (27.0-32.0); MCHC 32.8 g/dL (32.0-37.0); MCV 88.2 FL (80.0-97.0); Mean Platelet Volume 11.4 FL (9.5-12.2); NRBC Per 100 WBC 0 X 10*3/uL (0.00-0.01); Platelet Count 209 X 10*3/uL (140-440); RBC 5.01 X 10*6/uL (4.10-5.20); RDW 12.6 % (11.5-14.5); WBC 8.52 X 10*3/uL (4.50-10.00)
[2022-12-27 17:19] LABS: ALT 18 U/L (8-44); AST 15 U/L (13-35); Albumin 4.5 g/dL (3.8-4.9); Albumin/Globulin Ratio 1.88 Ratio (1.60-3.17); Alkaline Phosphatase 130 U/L (41-126); BUN/Creat Ratio 18.17 Ratio (12.00-20.00); Blood Urea Nitrogen 10.9 mg/dL (9.0-27.0); Calcium 9.9 mg/dL (8.7-10.3); Carbon Dioxide 25.7 mmol/L (21.6-31.8); Chloride 103 mmol/L (96-109); Chol/HDL Ratio 3.64 Ratio; Globulin 2.4 g/dL (1.6-3.3); Glucose 81 mg/dL (70-110); LDL Cholesterol,Calculated 67.6 mg/dL (0.0-131.0); Potassium 4.3 mmol/L (3.5-5.5); Sodium 140 mmol/L (135-145); Total Bilirubin 0.4 mg/dL (0.3-1.2); Total Protein 6.9 g/dL (6.2-8.2)
[2022-12-27 17:28] LABS: Hepatitis B Surface AB- Quant 22.6 mIU/mL
[2022-12-27 21:22] LABS: Mumps Virus IgG Ab Interp POSITIVE; Mumps Virus IgG Antibody 1.2 AI
== END | disposition home or self-care (01) ==
LOC: LABWHC1 07:36
PROVIDERS: ATTEND Physician Assistant
DX: Z01.84 Encounter for antibody response examination (principal); Z13.220 Encounter for screening for lipoid disorders; E66.09 Other obesity due to excess calories; R73.02 Impaired glucose tolerance (oral); R53.83 Other fatigue
CPT/HCPCS: 36415; 80053; 80061; 83036; 84443; 85027; 86706; 86735; 86762; 86765; 86787

== ENCOUNTER → 2023-03-15 | Outpatient (CLI) | payer MEDICAID ==
--- NOTE | 2023-03-15 11:20 | MM ---
Reason for Exam: Clinical finding. Indicated Problems: Lump or thickening of the left side for 1 Month(s). Patient History: Menarche at age 10. First Full-Term at age 29. Late child-bearing (after 30). Premenopausal. Patient has history of breast feeding. Maternal grandmother had breast cancer at or over age 50. Paternal grandmother had breast cancer at or over age 50. Maternal aunt had breast cancer under age 50. Last menstrual period: 03/03/2023 Tissue Density: There are scattered fibroglandular densities. Findings: Analyzed By CAD. There is a 2.4 cm circumscribed oval mass at the 11 to 12:00 position right breast for which further ultrasound evaluation is recommended. On the left, palpable marker placed along the inferior aspect and targeted ultrasound can be performed. No suspicious microcalcification or other discrete abnormality is seen. Overall Assessment: Incomplete: need additional imaging evaluation, BI-RAD 0 Management: Diagnostic Breast Ultrasound of both breasts. Electronically signed and approved by: Colette Orellana M.D. Radiologist
--- NOTE | 2023-03-15 11:45 | USB ---
Reason for Exam: Clinical finding. Patient History: Menarche at age 10. First Full-Term at age 29. Late child-bearing (after 30). Premenopausal. Patient has history of breast feeding. Maternal grandmother had breast cancer at or over age 50. Paternal grandmother had breast cancer at or over age 50. Maternal aunt had breast cancer under age 50. Technique: Method: Targeted. Findings: The upper outer quadrant of the right breast, the upper inner quadrant of the right breast, the lower section of the breast of the left breast, the axilla of both breasts and the retroareolar of both breasts were scanned. Targeted ultrasound right breast superior half 9:00 to 3:00 position. * At the site of mammographic abnormality, 12:00 position, 6 cm from the nipple, there is a 2.0 x 2.0 x 1.3 cm circumscribed oval hypoechoic solid mass with posterior through transmission. A fibroadenoma or lactating adenoma are the favored considerations. Other etiology should be excluded. * No other solid or cystic lesion or axillar lymphadenopathy. Targeted ultrasound left breast at the patient's palpable site from 4:00 to 6:00 including the subareolar region and axilla. * No solid or cystic lesion, particular attention to the 5:00 palpable site. * No axillary lymphadenopathy. Overall Assessment: Suspicious, BI-RAD 4 Management: Ultrasound Core Biopsy of the right breast. Electronically signed and approved by: Colette Orellana M.D. Radiologist
== END | disposition home or self-care (01) ==
LOC: RADMAMWWP 10:32
PROVIDERS: ATTEND Family Medicine
DX: N63.11 Unspecified lump in the right breast, upper outer quadrant (principal); N63.15 Unspecified lump in the right breast, overlapping quadrants; N63.20 Unspecified lump in the left breast, unspecified quadrant; R92.323 Mammographic fibroglandular density, bilateral breasts; Z80.3 Family history of malignant neoplasm of breast
CPT/HCPCS: 77062; 77066

== ENCOUNTER → 2023-04-04 | Day surgery (SDC) | payer MEDICAID ==
--- NOTE | 2023-04-06 12:05 | MM ---
Reason for Exam: Post Procedure Mammogram. Patient History: Menarche at age 10. First Full-Term at age 29. Late child-bearing (after 30). Premenopausal. Patient has history of breast feeding. Maternal grandmother had breast cancer at or over age 50. Paternal grandmother had breast cancer at or over age 50. Maternal aunt had breast cancer under age 50. Prior Study Comparison: 03/15/2023 Bilateral MG 3D diag mammo w/cad [facility], [facility]. Tissue Density: Right: The breast tissue is heterogeneously dense. This may lower the sensitivity of mammography. Pathology Description: Location: 12 o'clock. Marker Left Behind. Needle Type: Mammotome Cores: 4 Gauge: 13 The procedure of ultrasound guided core biopsy was explained to the patient. Benefits, alternatives, and risks were discussed. An informed consent was then obtained. The 2 cm 12:00 mass in the right breast is identified and targeted for biopsy. Possible fibroadenoma given circumscribed margins and posterior through transmission. The patient was placed in supine positioning for imaging and for the procedure. The overlying skin was prepped and draped in usual sterile fashion. Lidocaine was used as anesthetic into the skin and subcutaneous tissue up to area of concern in the 12:00 right breast. Under ultrasound guidance, a 13-gauge vacuum-assisted mammotome Elite biopsy gun was used to obtain 4 core samples. Following this, a coil clip was left in lesion. The patient tolerated the procedure well without any immediate complication. The patient was kept in the radiology department for short stay after the procedure and then discharged home in stable condition. Postprocedure mammogram: The patient was transferred to mammography for physician ordered post procedure mammogram for clip placement verification. Postprocedure mammogram shows clip within the 12:00 mass. IMPRESSION: Successful, uncomplicated ultrasound guided core biopsy of area of concern in the 12:00 right breast, possible fibroadenoma. Full pathology results to follow. Pathology Results: Result: Benign, Fibroadenoma. RIGHT BREAST, TWELVE O'CLOCK, ULTRASOUND GUIDED NEEDLE CORE BIOPSY: Fibroadenoma. Overall Assessment: Benign Assessment: MG diagnostic mammo RT wo CAD - Right: Benign, BI-RAD 2. Management: Diagnostic Breast Ultrasound of the right breast in 6 months. Excision can be considered if there is growth or if it becomes symptomatic. Electronically signed and approved by: Colette Orellana M.D. Radiologist
== END ==
LOC: RADUSWWP 09:50
PROVIDERS: ATTEND Family Medicine
DX: D24.1 Benign neoplasm of right breast (principal)
CPT/HCPCS: 88305; 77065; 19083; A4648